=== PATIENT | female | born 1940 | race Asian ===

== ENCOUNTER 2017-05-16 15:18 | Outpatient (CLI) | payer OTHER | END 2017-05-16 19:14 | disposition home or self-care (01) | LOC: RAD 15:18 | DX: R76.12 Nonspecific reaction to cell mediated immunity measurement of gamma interferon antigen response without active tuberculosis (principal) ==

== ENCOUNTER 2017-08-02 14:05 | Outpatient (CLI) | payer OTHER | END 2017-08-02 15:05 | disposition home or self-care (01) | LOC: RAD 14:05 | DX: M25.512 Pain in left shoulder (principal); M25.511 Pain in right shoulder ==

== ENCOUNTER 2018-05-15 09:00 | Outpatient (CLI) | payer OTHER | END 2018-05-15 23:22 | disposition home or self-care (01) | LOC: RAD 09:00 | DX: R06.02 Shortness of breath (principal) ==